=== PATIENT | male | born 1970 | race Caucasian/White ===

== ENCOUNTER 2016-06-14 19:51 | Emergency (ER) | payer OTHER ==
[~2016-06-14] VITALS: Ht 175.3 cm; Wt 135.3 kg
[2016-06-14 23:03] VITALS: BP 169/94
== END 2016-06-14 23:04 | disposition home or self-care (01) ==
LOC: EME → EDBD 19:51 → EME 19:51
DX: S09.90XA Unspecified injury of head, initial encounter (principal); S40.011A Contusion of right shoulder, initial encounter; S90.02XA Contusion of left ankle, initial encounter; I10 Essential (primary) hypertension; W10.8XXA Fall (on) (from) other stairs and steps, initial encounter; E11.9 Type 2 diabetes mellitus without complications
CPT/HCPCS: 70450; 73030; 73590; 73610; 99281; 99285

== ENCOUNTER 2017-08-22 18:22 | Emergency (ER) | payer OTHER ==
[~2017-08-22] VITALS: Ht 175.3 cm; Wt 134.7 kg
[2017-08-22 19:14] LABS: HEMATOCRIT 38.7 % (38.0-50.0); HEMOGLOBIN 13.8 G/DL (12.5-16.6); MCH 28.9 PG (29.0-34.0); MCHC 35.7 G/DL (30.0-36.0); PLATELET COUNT 237 K/uL (156-360); RBC DIS.WIDTH-CV 13.2 % (11.8-14.6); RBC DIS.WIDTH-SD 38.5 % (39-53); RED BLOOD COUNT 4.78 M/uL (4.00-5.50); WHITE BLOOD COUNT 9.7 K/uL (4.1-10.2)
[2017-08-22 19:27] LABS: INTER. NORMALIZED RATIO 1.1
[2017-08-22 19:29] LABS: PTT 29.5 SEC (25-37)
[2017-08-22 19:48] LABS: CHLORIDE 97 mEq/L (99-109); POTASSIUM 3.7 mEq/L (3.7-5.4); SODIUM 133 mEq/L (136-147)
[2017-08-22 19:49] LABS: GLUCOSE 258 mg/dL (70-99)
[2017-08-22 19:53] LABS: CREATININE 1.2 mg/dL (0.6-1.3); GFR ESTIMATE (CALCULATED) > 59 mL/min/ (58.99-99999)
[2017-08-22 19:54] LABS: UREA NITROGEN (BUN) 19 mg/dL (9-23)
[2017-08-22] MEDS ORDERED: KEFLEX500 MG PO (19:54)
[2017-08-22 21:14] VITALS: BP 126/84
== END 2017-08-22 21:16 | disposition home or self-care (01) ==
LOC: EME 18:22
PROVIDERS: Physician Assistant
PROC: 2Y41X5Z Packing of Nasal Region using Packing Material (ICD-10-PCS; principal; 2017-08-22)
DX: R04.0 Epistaxis (principal); I10 Essential (primary) hypertension; E11.9 Type 2 diabetes mellitus without complications
CPT/HCPCS: 80048; 82948; 85027; 85610; 85730; 99281; 99284